=== PATIENT | female | born 1980 | race Caucasian/White ===

== ENCOUNTER 2017-06-28 10:24 | Inpatient (IN) ==
[2017-06-28] MEDS ORDERED: 0.9 % Sodium Chloride 1,000 ML IVC ONE (11:17)
[2017-06-28] MEDS ORDERED: *HR* HYDROmorphone (PF) 1 MG/ML SYRINGE IVP ONE (11:23)
[2017-06-28] MEDS ORDERED: Ondansetron 4 MG/2 ML VIAL IVP ONE (11:23)
--- NOTE | 2017-06-28 11:29 | Emergency Department Note ---
START Narrative - START START: I examined this patient and my medical decision-making was reviewed with the Resident Physician. I agree with the documented findings, disposition and treatment plan as described except to the extent set forth below. 36-year-old female presented with right middle finger infection. Started out as a small sore and now has progressed to a hand cellulitis. Start outpatient antibiotics. We will start on IV vancomycin. Patient will need to be admitted. Blood cultures. will consult ortho
[2017-06-28] MEDS ORDERED: Vancomycin 2,000 MG in D5% in Water 500 ML IVPB ONE (11:36)
[2017-06-28 11:40] LABS: Basophils # 0.1 K/mcL (0.0-0.2); Basophils % 0.4 %; Eosinophils # 0.1 K/mcL (0.0-0.6); Eosinophils % 0.5 %; Hematocrit 40.3 % (35.3-44.9); Immature Granulocytes % 0.3 % (0-4); Lymphocytes # 2.1 K/mcL (0.6-4.6); Lymphocytes % 14.6 %; Mean Corpuscular HGB Conc 32.3 g/dL (31.6-35.5); Mean Corpuscular Hemoglobin 28.1 pg (28.0-33.3); Mean Corpuscular Volume 87.2 fL (83.0-100.0); Mean Platelet Volume 9.9 fL (9.4-12.4); Monocytes # 0.8 K/mcL (0.0-1.3); Monocytes % 5.5 %; Neutrophils # 11.1 K/mcL (1.6-8.9); Platelet Count 330 K/mcL (140-400); Red Blood Count 4.62 M/mcL (3.82-4.97); Red Cell Distribution Width 13.1 % (11.5-14.5); Segmented Neutrophils % 78.7 %
[2017-06-28 11:53] LABS: BUN/Creatinine Ratio 14 (6-26); Blood Urea Nitrogen 8 mg/dL (6-20); Calcium 9.4 mg/dL (8.6-10.3); Carbon Dioxide 23 mEq/L (23-29); Chloride 103 mEq/L (98-107); Glucose 140 mg/dL (70-105); Osmolality,Calculated 281 (280-300); Sodium 135 mEq/L (136-145); eGFR For African Americans > 60 (> 60); eGFR For Non-African Americans > 60 (> 60)
[2017-06-28] MEDS ORDERED: Ondansetron 4 MG/2 ML VIAL IVP PRN (13:06)
[2017-06-28] MEDS ORDERED: Naloxone 0.4 MG/ML INJ IVP PRN (13:06)
[2017-06-28] MEDS ORDERED: D5% in Water 1,000 ML IVC PRN (13:10)
[2017-06-28] MEDS ORDERED: Dextrose Gel 15 GM/37.5 ML TUBE PO PRN ×2 (13:10)
[2017-06-28] MEDS ORDERED: *HR* Dextrose 50 % in Water (Syg) 50 ML SYRINGE IVP PRN (13:10)
--- NOTE | 2017-06-28 13:17 | Internal Med History&Physical ---
Date of Encounter: 06/28/17 Time of Encounter: 13:13 Assessment and Plan (1) Sepsis Current visit: Yes Status: Acute Patient may sepsis criteria on admission with tachycardia heart rate 116, leukocytosis of 14,000, and associated sepsis is a right middle finger cellulitis with abscess. Lactate is within normal limits. Blood Pressure is within normal limits. Continue IV fluid hydration. Continue vancomycin, monitor vancomycin trough, pharmacy to dose. And clindamycin for streptococcal and anaerobic coverage. Blood culture has been done, we will follow. Hands and/orthopedic surgery evaluation and incision and drainage with culture. Follow final culture reports High-risk condition due to risk of progression to severe sepsis with septic shock, and use of vancomycin which is a drug that needs levels closely monitored. Patient is full code Qualifiers: Sepsis type: sepsis due to unspecified organism Qualified Code(s): A41.9 - Sepsis, unspecified organism (2) Cellulitis and abscess of hand Current visit: Yes Status: Acute As above Elevate limb Pain control hand CT (3) GERD (gastroesophageal reflux disease) Current visit: Yes Status: Chronic Continue home meds Qualifiers: Esophagitis presence: esophagitis presence not specified Qualified Code(s) : K21.9 - Gastro-esophageal reflux disease without esophagitis (4) Diabetes Current visit: Yes Status: Chronic A1C 6.3 Hold Metformin SQ insulin, ADA diet, FS ACHS Goal FS is 140-180 Qualifiers: Diabetes mellitus type: type 2 Diabetes mellitus complication status: without complication Diabetes mellitus long lines operator insulin use: without long lines operator use Qualified Code(s): E11.9 - Type 2 diabetes mellitus without complications (5) Hyperlipidemia Current visit: Yes Status: Chronic Continue home meds Qualifiers: Hyperlipidemia type: unspecified Qualified Code(s): E78.5 - Hyperlipidemia , unspecified (6) Hypertension Current visit: Yes Status: Chronic Controlled, continue home meds Qualifiers: Hypertension type: essential hypertension Qualified Code(s): I10 - Essential (primary) hypertension (7) Morbid obesity with BMI of 40.0-44.9, adult Current visit: Yes Status: Chronic Lifestyle education (8) DVT prophylaxis Current visit: Yes Status: Acute Lovenox Internal Medicine - H&P: HPI Chief complaint: Right hand swelling Admitted From: Home Plans for Post Hospital Care: Home History of present illness: Ms. Bonilla is a 36 year old female with morbid obesity, hypertension, diabetes mellitus, and depression. Patient was seen and evaluated in the emergency room with her partner. She was in her usual state of health until 4 days ago when she noticed a pimple on her right middle finger, the lesion continued to get bigger and began to discharge pus. 3 days ago, she went to her primary care doctor who give her Bactrim. However, her right hand continued to get more swollen, red, as well as painful. Her right middle finger is extremely swollen and tense. This is associated with pain, the patient states no current discharge from the punctum. She has been taking aspirin and Tylenol at home, and she reports subjective fevers and chills. She has no chest, respiratory, gastrointestinal, or neurologic symptoms. She states her las A1C was 6. She is on low dose metformin for diabetes mellitus On evaluation in the ER, patient is tachycardic, afebrile, insignificant painful distress, and workup reveals leukocytosis with left shift 14,000, CRP is elevated at 46, if there is elevated at 209, she has pseudohyponatremia and mild hyperglycemia. Her lactate is normal. A hand x-ray shows no osseous abnormalities. She will be admitted inpatient for management of sepsis secondary to right middle finger cellulitis with abscess collection with failure of outpatient therapy. Hand surgery and orthopedics will be consulted. The patient has allergies to penicillin, hence she will be placed on vancomycin for staph aureus coverage and clindamycin for anaerobic and streptococcal coverage. Blood cultures have been drawn, wound cultures to be done with incision and drainage by surgery. Plan of care discussed with the patient verbalized understanding. Past Med Surg Social Fam HX - Past Medical History Medical history: diabetes, GERD, hyperlipidemia, hypertension Psychiatric history: depression - Past Surgical History Surgical History: - Social History Smoking Status: Never smoker Smokeless Tobacco Status: No Alcohol use: occasionally Drug use: none - Family History Mother Adopted: No Family Member Ethnicity: Non- Living Status: Still Living Hx Family Cardiac Disorders: Yes (stents) Hx Family Respiratory Disorders: No Hx Family Cancer: No Hx Family GI Disorders: No Hx Family Endocrine Disorder: No Hx Family Neuromuscular Disorders: No Hx Family Neurologic Disorders: No Hx Family HEENT Disorders: No Hx Family Autoimmune Disorders: No Internal Medicine - H&P: Meds Atorvastatin [Lipitor] 60 mg PO HS 07/07/15 [History] Omeprazole [PriLOSEC] 20 mg PO DAILY 07/07/15 [History] Paroxetine [Paxil] 60 mg PO DAILY 07/07/15 [History] Aspirin 81 mg PO DAILY 10/19/15 [History] Lisinopril/Hydrochlorothiazide [Zestoretic 10-12.5 mg Tablet] 1 each PO DAILY [History] Sulfamethoxazole/Trimeth DS [Bactrim Ds] 1 tab PO BID 06/28/17 [History] 3 Allergy/AdvReac Type Severity Reaction Status Date / Time Amoxicillin Allergy Hives Verified 06/28/17 10:36 Penicillins Allergy Hives Verified 06/28/17 10:36 All Systems PM: A 10-system review of systems was performed and is negative for pertinent findings except as documented above in the HPI. - Constitutional Constitutional: chills, fever(s) - EENT Eyes: no change in vision, no discharge, no pain, no photophobia Ears: no ear discharge, no ear pain, no tinnitus Nose, mouth and throat: no dysphagia, no nasal discharge, no neck pain, no sore throat - Cardiovascular Cardiovascular ROS IM: no chest pain, no diaphoresis, no dyspnea, no lightheadedness, no palpitations, no syncope - Respiratory Respiratory: no cough, no dyspnea, no wheezing, no excessive phlegm production - Gastrointestinal Gastrointestinal: no abdominal pain, no diarrhea, no hematemesis, no hematochezia, no melena, no nausea, no vomiting - Genitourinary Genitourinary: no change in urinary stream, no dysuria, no flank pain, no hematuria - Musculoskeletal Musculoskeletal ROS IM: as per HPI - Integumentary Integumentary IM: as per HPI - Neurological Neurological ROS: no confusion, no convulsions, no focal weakness, no numbness, no tingling, no tremor(s) - Hematologic/Lymphatic Hematologic/Lymphatic: no easy bruising - Constitutional Vitals: Temp Pulse Resp BP Pulse Ox 99.3 F 96 18 137/76 95 06/28/17 10:32 06/28/17 12:18 06/28/17 12:18 06/28/17 12:18 06/28/17 12:18 General appearance: Present: mild distress, A&O X 3, morbidly obese, pleasant - Head Head exam: Present: atraumatic, normocephalic - Eye Eye exam: Present: PERRL, conjuntiva pink, sclera anicteric Pupils: Present: PERRL - Neck Neck exam general surgery: Present: supple, trachea midline. Absent: lymphadenopathy - Respiratory Respiratory exam: Present: CTAB. Absent: accessory muscle use, rales, rhonchi, wheezes - Cardiovascular Cardiovascular exam: Present: RRR, +S1, +S2. Absent: diastolic murmur, gallop, rubs, systolic murmur - GI/Abdominal GI/Abdominal exam: Present: normal bowel sounds, soft, no peritoneal signs. Absent: distended, tenderness - Extremities Exam Additional comments: Right hand. The right middle finger explicitly tender and tensely swollen punctum on the dorsal surface of the finger with surrounding possible abscess collection and no active drainage. Associated erythema of the entire right hand and does not surface with swelling, associated lymphangitis although we have to the elbow. Right radial pulses present, distal part of the right hand is well vascularized and neurovascularly intact. - Neurological Exam Neurological exam: Present: alert, CN II-XII intact, oriented X3, no focal deficits. Absent: pronater drift, facial droop, speech deficit - Skin Skin exam: Present: dry Internal Med - H&P Results - Labs CBC & Chem 7: 06/28/17 11:29 06/28/17 11:29
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
[2017-06-28] MEDS: *HR* HYDROmorphone (PF) 1 MG/ML SYRINGE IVP PRN ×2 (14:17→21:34)
[2017-06-28] MEDS: 0.9 % Sodium Chloride 1,000 ML IVC SCH (14:46)
[2017-06-28] MEDS: Insulin LISPRO 300 UNITS/3 ML VIAL SQ SCH ×2 (15:21→21:40)
[2017-06-28] MEDS: Clindamycin 300 MG in D5% in Water 50 ML IVPB SCH (16:00)
--- NOTE | 2017-06-28 16:33 | Orthopedic Consult Note ---
Date of Encounter: 06/28/17 Time of Encounter: 16:32 Assessment and Plan (1) Cellulitis and abscess of hand Current Visit: Yes Status: Acute I discussed the diagnosis in detail with the patient. I recommend additional for incision and drainage at the bedside and antibiotics per the hospitalist. The risks discussed included but were not limited to stiffness, bleeding, infection, blood clots, damage to neurovascular structures, tendons, ligaments, and bone. Also discussed was the risk of continued symptoms and possible need for further procedures. She did wish to proceed and consent was obtained. I did sterilize the right long finger and anesthetized with 10 mL of 1% plain lidocaine with epinephrine. I made a 1 cm longitudinal incision over the abscess and drained a few cc of grossly purulent material which was cultured. The wound was irrigated and packed open with quarter-inch packing. A sterile dressing was applied. My recommendation at this point my recommendation at this point is for local wound care with daily dressing changes and packing changes. Elevation. Motion exercises to reduce the risk of stiffness. History of Present Illness HPI: Ms. Bonilla is a 36 year old female admitted to the hospitalist for a subcutaneous abscess of the right long finger. She says she noticed it about a week ago and started to take adequate and got some drainage. This was over the weekend. She was apparently placed on oral antibiotics at some point as well however due to persistent symptoms and swelling she went to the emergency department today and was admitted to the hospitalist. The patient complains of isolated pain to the right long finger. No numbness, tingling, or other associated signs or symptoms. The pain is described as sharp and aching and worse with movement and use of the digit and better with rest. No other modifying factors. She currently denies any feelings of illness. Past Med Surg Social Fam HX - Past Medical History Medical history: diabetes, GERD, hyperlipidemia, hypertension Psychiatric history: depression - Past Surgical History Surgical History: - Social History Smoking Status: Never smoker Smokeless Tobacco Status: No Alcohol use: occasionally Drug use: none - Family History Mother Adopted: No Family Member Ethnicity: Non- Living Status: Still Living Hx Family Cardiac Disorders: Yes (stents) Hx Family Respiratory Disorders: No Hx Family Cancer: No Hx Family GI Disorders: No Hx Family Endocrine Disorder: No Hx Family Neuromuscular Disorders: No Hx Family Neurologic Disorders: No Hx Family HEENT Disorders: No Hx Family Autoimmune Disorders: No Medications and Allergies Atorvastatin [Lipitor] 60 mg PO HS 07/07/15 [History] Omeprazole [PriLOSEC] 20 mg PO DAILY 07/07/15 [History] Paroxetine [Paxil] 60 mg PO DAILY 07/07/15 [History] Aspirin 81 mg PO DAILY 10/19/15 [History] Lisinopril/Hydrochlorothiazide [Zestoretic 10-12.5 mg Tablet] 1 each PO DAILY [History] Sulfamethoxazole/Trimeth DS [Bactrim Ds] 1 tab PO BID 06/28/17 [History] 3 Allergy/AdvReac Type Severity Reaction Status Date / Time Amoxicillin Allergy Hives Verified 06/28/17 10:36 Penicillins Allergy Hives Verified 06/28/17 10:36 All Systems Reviewed: A 10-system review of systems was performed and is negative for pertinent findings except as documented above in the HPI. Physical Exam - Constitutional Vitals: Temp Pulse Resp BP Pulse Ox 98.5 F 94 16 124/86 98 06/28/17 14:05 06/28/17 14:05 06/28/17 14:05 06/28/17 14:05 06/28/17 14:05 CONSTITUTIONAL -Vitals reviewed -The patient is well developed, well nourished, well groomed PSYCHIATRIC -Fully alert and oriented -Pleasant mood RIGHT UPPER EXTREMITY Inspection shows swelling of the right long finger with focal erythema around a raised abscess along the dorsal aspect of the proximal phalangeal region. Tenderness in this area with fluctuance. I am able to express a drop or 2 of grossly purulent material. She is able to grossly flex and extend the digits with some limitation due to pain and swelling of the right long finger. The patient can actively flex and extend all digits, extend the thumb, cross the index and long fingers, make an okay sign, and oppose the thumb. The fingertips are all grossly sensate and well-perfused, and the radial artery pulse is 2+. Diagnostic Imaging: I did personally review and interpret the x-ray and the CT scan of the right hand which show an abscess of the dorsal aspect of the right long finger. Results - Labs Result Diagrams: 06/28/17 11:29 06/28/17 11:29 Labs: Abnormal lab results WBC 14.1 K/mcL (4.3-11.1) H 06/28/17 11:29 Neutrophils # 11.1 K/mcL (1.6-8.9) H 06/28/17 11:29 ESR 109 mm/hr (0-15) H 06/28/17 11:29 Sodium 135 mEq/L (136-145) L 06/28/17 11:29 Creatinine 0.57 mg/dL (0.60-1.20) L 06/28/17 11:29 Glucose 140 mg/dL (70-105) H 06/28/17 11:29 C-Reactive Protein 46 mg/L (Less than 10) H 06/28/17 11:29 All other labs normal. Consult Discharge Plan - Plan Referrals: Rikki Wynn DO [Primary Care Provider] -
[2017-06-28] MEDS: *HR* OxyCODONE Immed Rel 5 MG TABLET PO PRN (16:42)
[2017-06-29] MEDS ORDERED: Vancomycin 2,000 MG in D5% in Water 500 ML IVPB ONE
[2017-06-29] MEDS: Clindamycin 300 MG in D5% in Water 50 ML IVPB SCH (00:13)
[2017-06-29] MEDS: *HR* OxyCODONE Immed Rel 5 MG TABLET PO PRN ×2 (00:13→09:24)
[2017-06-29] MEDS ORDERED: Vancomycin 2,000 MG in D5% in Water 250 ML IVPB SCH (02:00)
[2017-06-29] MEDS: 0.9 % Sodium Chloride 1,000 ML IVC SCH (03:10)
[2017-06-29 05:00] LABS: Basophils # 0.1 K/mcL (0.0-0.2); Basophils % 0.4 %; Eosinophils # 0.1 K/mcL (0.0-0.6); Eosinophils % 1.2 %; Hematocrit 36.4 % (35.3-44.9); Hemoglobin 11.7 g/dL (11.5-15.4); Immature Granulocytes % 0.3 % (0-4); Lymphocytes # 2.8 K/mcL (0.6-4.6); Lymphocytes % 23.1 %; Mean Corpuscular HGB Conc 32.1 g/dL (31.6-35.5); Mean Corpuscular Hemoglobin 28.3 pg (28.0-33.3); Mean Corpuscular Volume 87.9 fL (83.0-100.0); Mean Platelet Volume 9.9 fL (9.4-12.4); Monocytes # 1.2 K/mcL (0.0-1.3); Monocytes % 10.1 %; Neutrophils # 7.8 K/mcL (1.6-8.9); Platelet Count 301 K/mcL (140-400); Red Blood Count 4.14 M/mcL (3.82-4.97); Red Cell Distribution Width 13.2 % (11.5-14.5); Segmented Neutrophils % 64.9 %
[2017-06-29 05:43] LABS: BUN/Creatinine Ratio 15 (6-26); Blood Urea Nitrogen 8 mg/dL (6-20); Calcium 8.9 mg/dL (8.6-10.3); Carbon Dioxide 26 mEq/L (23-29); Chloride 103 mEq/L (98-107); Glucose 129 mg/dL (70-105); Osmolality,Calculated 282 (280-300); Potassium 3.8 mEq/L (3.5-5.1); Sodium 136 mEq/L (136-145); eGFR For African Americans > 60 (> 60); eGFR For Non-African Americans > 60 (> 60)
[2017-06-29] MEDS: *HR* Enoxaparin 40 MG/0.4 ML SYRINGE SQ SCH (05:44)
[2017-06-29] MEDS: Insulin LISPRO 300 UNITS/3 ML VIAL SQ SCH ×4 (07:35→20:41)
--- NOTE | 2017-06-29 07:57 | Orthopedics Progress Note ---
Date of Encounter: 06/29/17 Time of Encounter: 07:55 - Assessment and Plan (1) Cellulitis and abscess of hand Current Visit: Yes Status: Acute Subjective Interval history: S: Resting in bed comfortably. Improvement in the right long finger pain. O: Afebrile and vital signs are stable Right long finger dressing changed and the packing is pulled. Improvement in the swelling and redness. No new purulence. She can grossly flex and extend the digits with some limitation due to pain. The patient can actively flex and extend all digits, extend the thumb, cross the index and long fingers, make an okay sign, and oppose the thumb. The fingertips are all grossly sensate and well-perfused, and the radial artery pulse is 2+. A: Right long finger abscess post I&D P: Daily dressing changes Daily packing changes Anticipate switch to oral antibiotics today Orthopedically stable for discharge Follow-up in the office in 1 week for clinical reevaluation or sooner if needed Objective Vital signs: Vital Signs Temp Pulse Resp BP Pulse Ox 06/29/17 07:10 97.8 F 75 18 126/81 96 06/29/17 00:07 98.4 F 87 16 130/77 96 06/28/17 21:55 95 06/28/17 20:50 99.4 F 105 16 123/72 95 06/28/17 14:05 98.5 F 94 16 124/86 98 Intake and Output 06/28/17 06/28/17 06/29/17 15:59 23:59 07:59 Intake Total 1500 / 1500 0 / 0 152 / 152 Output Total 1300 / 1300 500 / 500 Balance 1500 / 1500 -1300 / -1300 -348 / -348 Intake: IV Fluids 1500 / 1500 152 / 152 0.9 % Sodium Chloride 1,000 ML 1000 / 1000 100 / 100 @ 100 mls/hr IVC .Q10H [facility]I Rx#: [id number] Cleocin 300 MG In Dextrose 5% 52 / 52 50 ML @ 50 mls/hr IVPB Q8HR MAI Rx#:[id number] Vancocin 2,000 MG In Dextrose 5 500 / 500 % 500 ML @ 250 mls/hr IVPB ONCE ONE Rx#:[id number] Oral 0 / 0 0 / 0 Output: Urine 1300 / 1300 500 / 500 Other: Weight 129.274 kg Blood Glucose* 125 152 124 - Labs CBC & BMP: 06/29/17 04:37 06/29/17 04:37 Labs: Abnormal lab results WBC 12.0 K/mcL (4.3-11.1) H 06/29/17 04:37 ESR 109 mm/hr (0-15) H 06/28/17 11:29 Creatinine 0.54 mg/dL (0.60-1.20) L 06/29/17 04:37 Glucose 129 mg/dL (70-105) H 06/29/17 04:37 C-Reactive Protein 46 mg/L (Less than 10) H 06/28/17 11:29 Consult Discharge Plan - Plan Referrals: ColopyRikki DO [Primary Care Provider] -
[2017-06-29] MEDS: Aspirin 81 MG TAB.CHEW PO SCH (08:56)
--- NOTE | 2017-06-29 10:55 | Internal Med Progress Note ---
<Gaye Pugh - Last Filed: 06/29/17 15:07> Date of Encounter: 06/29/17 Time of Encounter: 10:53 - Assessment and plan (1) Sepsis Current Visit: Yes Status: Acute Assessment and plan: Resolved. Afebrile, WBC 12 improving (14 at admission) HR stable and BP stable Sepsis secondary to cellulitis and abscess of hand hand CT demonstrated dorsal subcutaneous fat stranding of hand, wrist, 3rd digit with cellulitis. No drainable fluid or soft tissue gas, no osteomyelitis. s/p incision and drainage by ortho she has received 2 days of vancomycin and clindamycin Plan clindamycin PO day 1 wound, blood, anaerobic cultures pending Qualifiers: Sepsis type: sepsis due to unspecified organism Qualified Code(s): A41.9 - Sepsis, unspecified organism (2) Cellulitis and abscess of hand Current Visit: Yes Status: Acute Assessment and plan: Hand CT demonstrated dorsal subcutaneous fat stranding at hand, wrist, 3rd digit with cellulitis. No drainable fluid or soft tissue gas, no osteomyelitis. s/p incision and drainage by Ortho she reports that her hand no longer hurts and feels much better since the I&D. Plan continue PO clindamycin Elevate limb taking control with ibuprofen and Tylenol wound care following for daily dressing and packing changes Ortho following and will follow-up with the patient in office in one week (3) Hypertension Current Visit: Yes Status: Chronic Assessment and plan: History of hypertension continue home lisinopril and aspirin Qualifiers: Hypertension type: essential hypertension Qualified Code(s): I10 - Essential (primary) hypertension (4) Hyperlipidemia Current Visit: Yes Status: Chronic Assessment and plan: History of hyperlipidemia continue home atorvastatin Qualifiers: Hyperlipidemia type: unspecified Qualified Code(s): E78.5 - Hyperlipidemia , unspecified (5) GERD (gastroesophageal reflux disease) Current Visit: Yes Status: Chronic Assessment and plan: History of Gerd continue home omeprazole Qualifiers: Esophagitis presence: esophagitis presence not specified Qualified Code(s) : K21.9 - Gastro-esophageal reflux disease without esophagitis (6) Diabetes Current Visit: Yes Status: Chronic Assessment and plan: History of diabetes taking metformin glucose 129 continue low-dose sliding scale insulin Qualifiers: Diabetes mellitus type: type 2 Diabetes mellitus complication status: without complication Diabetes mellitus termite control representative insulin use: without usp use Qualified Code(s): E11.9 - Type 2 diabetes mellitus without complications (7) Morbid obesity with BMI of 50.0-59.9, adult Current Visit: No Status: Chronic (8) DVT prophylaxis Current Visit: Yes Status: Acute Assessment and plan: Lovenox sq - Subjective Interval history: She is learning oriented times 3 alongside her . She stated that her hand feels much better and does not have any pain. She denies fever, chills, just pain, shortness of breath. - Constitutional Vitals: Temp Pulse Resp BP Pulse Ox 97.8 F 75 18 126/81 96 06/29/17 07:10 06/29/17 07:10 06/29/17 07:10 06/29/17 07:10 06/29/17 07:10 General appearance: Present: mild distress, A&O X 3, morbidly obese, pleasant Exam: Gen.: Vitals noted. No acute distress. AAOx3 HEENT: oropharynx clear, Normocephalic, atraumatic Neck: Supple. No adenopathy. Cardiac: RRR, no murmur, +S1/S2 Pulmonary: CTA bilaterally, no wheezes, rales or rhonchi, equal chest expansion Abdomen: soft, nontender, Bowel sounds noted, no guarding Extremities: right upper extremity bandaged with minimal edema. no BLE edema, nontender calf, no cyanosis or clubbing Neuro: A&Ox3, moves all extremities, no focal deficits Psych: Appropriate mood and behavior Internal Medicine: Result - Labs CBC & Chem 7: 06/29/17 04:37 06/29/17 04:37 Labs: Short CBC 06/29/17 Range/Units 04:37 WBC 12.0 H (4.3-11.1) K/mcL Hgb 11.7 (11.5-15.4) g/dL Hct 36.4 (35.3-44.9) % Plt Count 301 (140-400) K/mcL Neutrophils # 7.8 (1.6-8.9) K/mcL BMP 06/29/17 04:37 Sodium 136 Potassium 3.8 Chloride 103 Carbon Dioxide 26 BUN 8 Creatinine 0.54 L Glucose 129 H Calcium 8.9 Consult Discharge Plan - Plan Referrals: Rikki Wynn DO [Primary Care Provider] - <Mannie Haynes - Last Filed: 06/29/17 17:04> Date of Encounter: 06/29/17 - Constitutional Vitals: Temp Pulse Resp BP Pulse Ox 98.1 F 77 16 121/67 96 06/29/17 15:24 06/29/17 15:24 06/29/17 15:24 06/29/17 15:24 06/29/17 15:24 Internal Medicine: Result - Labs CBC & Chem 7: 06/29/17 04:37 06/29/17 04:37 Labs: Short CBC 06/29/17 Range/Units 04:37 WBC 12.0 H (4.3-11.1) K/mcL Hgb 11.7 (11.5-15.4) g/dL Hct 36.4 (35.3-44.9) % Plt Count 301 (140-400) K/mcL Neutrophils # 7.8 (1.6-8.9) K/mcL BMP 06/29/17 04:37 Sodium 136 Potassium 3.8 Chloride 103 Carbon Dioxide 26 BUN 8 Creatinine 0.54 L Glucose 129 H Calcium 8.9 - Attending Attestation I personally interviewed and examined this pt. I reviewed all labs and studies. I agree wiht the findings, assessment and plan of Dr. Bonds, Internal Medicine Resident. Ortho input appreciated. Await cx. Gavin worrell in am.
[2017-06-29] MEDS ORDERED: Vancomycin 1,250 MG in D5% in Water 250 ML IVPB SCH (12:00)
[2017-06-29] MEDS ORDERED: Aminoglycoside Consult 1 EACH MC ONE (16:54)
[2017-06-29] MEDS: Acetaminophen 325 MG TABLET PO PRN (17:39)
[2017-06-29] MEDS ORDERED: cephALEXin 500 MG CAPSULE PO SCH (21:00)
[2017-06-30] MEDS: Acetaminophen 325 MG TABLET PO PRN (00:57)
[2017-06-30] MEDS: *HR* Enoxaparin 40 MG/0.4 ML SYRINGE SQ SCH (05:07)
[2017-06-30] MEDS: Ibuprofen 400 MG TABLET PO PRN ×2 (05:18→12:45)
[2017-06-30 05:49] LABS: Hematocrit 43.4 % (35.3-44.9); Hemoglobin 13.7 g/dL (11.5-15.4); Mean Corpuscular HGB Conc 31.6 g/dL (31.6-35.5); Mean Corpuscular Hemoglobin 28.1 pg (28.0-33.3); Mean Corpuscular Volume 88.9 fL (83.0-100.0); Mean Platelet Volume 10.5 fL (9.4-12.4); Platelet Count 313 K/mcL (140-400); Red Blood Count 4.88 M/mcL (3.82-4.97); Red Cell Distribution Width 13.1 % (11.5-14.5)
[2017-06-30 06:24] LABS: BUN/Creatinine Ratio 17 (6-26); Blood Urea Nitrogen 9 mg/dL (6-20); Calcium 9.6 mg/dL (8.6-10.3); Carbon Dioxide 28 mEq/L (23-29); Chloride 103 mEq/L (98-107); Glucose 126 mg/dL (70-105); Osmolality,Calculated 286 (280-300); Potassium 3.7 mEq/L (3.5-5.1); Sodium 138 mEq/L (136-145); eGFR For African Americans > 60 (> 60); eGFR For Non-African Americans > 60 (> 60)
[2017-06-30] MEDS: Insulin LISPRO 300 UNITS/3 ML VIAL SQ SCH ×2 (08:55→11:42)
[2017-06-30] MEDS: Aspirin 81 MG TAB.CHEW PO SCH (08:55)
--- NOTE | 2017-06-30 10:44 | Discharge Summary ---
<Gaye Pugh - Last Filed: 06/30/17 14:37> Date of Encounter: 06/30/17 Time of Encounter: 10:15 - Discharge Diagnosis (1) Sepsis Priority: Primary Status: Acute Qualifiers: Sepsis type: sepsis due to unspecified organism Qualified Code(s): A41.9 - Sepsis, unspecified organism (2) Cellulitis and abscess of hand Priority: Secondary Status: Acute (3) Hypertension Priority: Secondary Status: Chronic Qualifiers: Hypertension type: essential hypertension Qualified Code(s): I10 - Essential (primary) hypertension (4) Hyperlipidemia Priority: Secondary Status: Chronic Qualifiers: Hyperlipidemia type: unspecified Qualified Code(s): E78.5 - Hyperlipidemia , unspecified (5) GERD (gastroesophageal reflux disease) Priority: Secondary Status: Chronic Qualifiers: Esophagitis presence: esophagitis presence not specified Qualified Code(s) : K21.9 - Gastro-esophageal reflux disease without esophagitis (6) Diabetes Priority: Secondary Status: Chronic Qualifiers: Diabetes mellitus type: type 2 Diabetes mellitus complication status: without complication 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 Qualified Code(s): E11.9 - Type 2 diabetes mellitus without complications (7) Morbid obesity with BMI of 50.0-59.9, adult Priority: Secondary Status: Chronic (8) DVT prophylaxis Priority: Secondary Status: Acute - Discharge Medications Prescriptions: Ibuprofen [Motrin] 400 mg PO Q6HR PRN #8 tablet PRN Reason: Mild Pain (1-3) Doxycycline 100 mg PO BID #14 capsule Home Medications: Atorvastatin [Lipitor] 60 mg PO HS 07/07/15 [History] Omeprazole [PriLOSEC] 20 mg PO DAILY 07/07/15 [History] Paroxetine [Paxil] 60 mg PO DAILY 07/07/15 [History] Aspirin 81 mg PO DAILY 10/19/15 [History] Lisinopril/Hydrochlorothiazide [Zestoretic 10-12.5 mg Tablet] 1 each PO DAILY [History] Doxycycline 100 mg PO BID #14 capsule 06/30/17 [Rx] Ibuprofen [Motrin] 400 mg PO Q6HR PRN #8 tablet 06/30/17 [Rx] Allergies/Adverse Reactions: 3 Allergy/AdvReac Type Severity Reaction Status Date / Time Amoxicillin Allergy Hives Verified 06/28/17 10:36 Penicillins Allergy Hives Verified 06/28/17 10:36 Date of admission: 06/28/17 13:15 Primary care physician: Rikki Wynn Discharging clinician: Mannie Haynes Anticipated date of discharge: 06/30/17 - Patient Status Disposition: Home, Self-Care Condition: Good Functional capacity at discharge: independent ambulation Overall status at discharge: patient is back to baseline - Discharge Instructions Follow Up With: Nate Fagan MD [Partnered Physician] - 07/07/17 1:00 pm Forms: ED Satisfaction Letter Additional Instructions: Finish in antibiotic as prescribed may take ibuprofen as needed for pain follow-up with orthopedic surgery in one week follow-up with her PCP in a week or 2 return to hospital should you develop fever, chills, worsening hand pain, shortness of breath, chest pain - Diet and Activity Activity: resume usual activities as tolerated Diet: advance to your usual diet Hospital course: Ms. Bonilla is a 36 year old female with morbid obesity, hypertension, diabetes mellitus, and depression. She was in her usual state of health until 4 days ago when she noticed a pimple on her right middle finger, the lesion continued to get bigger and began to discharge pus. 3 days ago, she went to her primary care doctor who give her Bactrim. However, her right hand continued to get more swollen, red, as well as painful. Her right middle finger is extremely swollen and tense. This is associated with pain, the patient states no current discharge from the punctum. She has been taking aspirin and Tylenol at home, and she reports subjective fevers and chills. She has no chest, respiratory, gastrointestinal, or neurologic symptoms. She states her las A1C was 6. She is on low dose metformin for diabetes mellitus. On evaluation in the ER, patient is tachycardic, afebrile, insignificant painful distress, and workup reveals leukocytosis with left shift 14,000, CRP is elevated at 46, if there is elevated at 209, she has pseudohyponatremia and mild hyperglycemia. Her lactate is normal. A hand x-ray shows no osseous abnormalities. She was admitted inpatient for management of sepsis secondary to right middle finger cellulitis with abscess collection with failure of outpatient therapy. Hand surgery and orthopedics was consulted. The patient has allergies to penicillin, hence she was placed on vancomycin for staph aureus coverage and clindamycin for anaerobic and streptococcal coverage. Blood cultures and wound cultures were drawn. Orthopedic surgery was consulted and performed incision and drainage. The patient stabilized hemodynamically and white blood cell count return to normal limits. Hand CT demonstrated dorsal subcutaneous fat stranding at hand, wrist, 3rd digit with cellulitis. No drainable fluid or soft tissue gas, no osteomyelitis. The patients in about expert changes to PO clindamycin. Upon discharge the patient denies fever, chills, erythema, nausea, vomiting, shortness of breath, chest pain. She reported improvement in hand pain and that she no longer had pain. She will be following up with orthopedic surgery outpatient in one week. She will be given antibiotics for discharge. She is to follow up with her PCP in a week or 2. She informed to return to the hospital should she develop fever, chills, nausea , vomiting, chest pain, shortness of breath, worsening hand pain. She is alongside her . She is alert and oriented times 3 with full capacity and she stated a clear understanding of the treatment plan. - Time Spent with Patient Total time spent providing and/or coordinating discharge services: - Constitutional Vitals: Temp Pulse Resp BP Pulse Ox 97.5 F L 71 16 133/76 95 06/30/17 06:59 06/30/17 06:59 06/30/17 06:59 06/30/17 06:59 06/30/17 06:59 General appearance: Present: mild distress, A&O X 3, morbidly obese, pleasant Exam: Gen.: Vitals noted. No acute distress. AAOx3 HEENT: oropharynx clear, Normocephalic, atraumatic Neck: Supple. No adenopathy. Cardiac: RRR, no murmur, +S1/S2 Pulmonary: CTA bilaterally, no wheezes, rales or rhonchi, equal chest expansion Abdomen: soft, nontender, Bowel sounds noted, no guarding MSK: ROM intact, no joint swelling noted Extremities: right upper extremity edema, nontender calf, no cyanosis or clubbing, incision of right 3rd phalanx, no erythema Neuro: A&Ox3, moves all extremities, no focal deficits Psych: Appropriate mood and behavior <Mannie Haynes - Last Filed: 06/30/17 17:45> Date of Encounter: 06/30/17 Date of admission: 06/28/17 13:15 Primary care physician: Rikki Wynn Hospital course: Ms. Bonilla is a 36 year old female - Time Spent with Patient Total time spent providing and/or coordinating discharge services: - Constitutional Vitals: Temp Pulse Resp BP Pulse Ox 98.0 F 72 12 118/77 98 06/30/17 12:06 06/30/17 12:06 06/30/17 12:06 06/30/17 12:06 06/30/17 12:06 - Attending Attestation I personally interviewed and examined this patient. Reviewed all labs and studies. I discussed the case with Dr. Pugh, internal medicine resident and I agree with her findings, assessment and plan. Patient stable for discharge today she will follow up with orthopedic surgery as planned. Antibiotics as ordered.
[2017-06-30 12:07] VITALS: BP 118/77
[2017-06-30] MEDS ORDERED: Doxycycline 100 MG CAPSULE PO SCH (21:00)
== END 2017-06-30 16:55 | disposition home or self-care (01) | DRG 872 ==
LOC: EMEROO 10:24 → 3ANU 10:24
PROVIDERS: ADMIT Internal Medicine; ATTEND Internal Medicine